=== PATIENT | female | born 1960 | race Caucasian/White ===

== ENCOUNTER 2021-02-10 07:52 | Outpatient (CLI) | payer OTHER ==
[2021-02-10] MEDS ORDERED: FENTANYL PF 100 MCG/2ML ONE (09:12)
[2021-02-10] MEDS ORDERED: MIDAZOLAM 1 MG/ML, 5ML ONE (09:12)
[2021-02-10] MEDS ORDERED: GADOTERATE 10 MMOL/20ML SYR ONE (09:35)
== END 2021-02-10 23:59 | disposition home or self-care (01) ==
LOC: RAD 07:52
PROVIDERS: ATTEND Registered Nurse
DX: G43.109 Migraine with aura, not intractable, without status migrainosus (principal); E78.5 Hyperlipidemia, unspecified; J45.909 Unspecified asthma, uncomplicated; Z88.1 Allergy status to other antibiotic agents
CPT/HCPCS: 70553; 99156; 99157; A9575; J2250; J3010